=== PATIENT | male | born 1965 | race Caucasian/White ===

== ENCOUNTER 2022-11-30 20:36 | Emergency (ER) | payer BC, MEDICAID ==
[~2022-11-30] VITALS: Ht 182.9 cm; Wt 100.0 kg
[~2022-11-30 20:36] MED LIST: ALBU18HF2 IH; PRED20TA PO
[2022-11-30 20:41] VITALS: BP 166/96
== END 2022-11-30 20:48 ==
LOC: ER 20:37
DX: S00.31XA Abrasion of nose, initial encounter (principal); F10.129 Alcohol abuse with intoxication, unspecified; I10 Essential (primary) hypertension; F12.90 Cannabis use, unspecified, uncomplicated; F15.90 Other stimulant use, unspecified, uncomplicated; Z86.19 Personal history of other infectious and parasitic diseases; Z56.0 Unemployment, unspecified; Z79.899 Other long term (current) drug therapy; Z72.89 Other problems related to lifestyle; W22.8XXA Striking against or struck by other objects, initial encounter; Y93.89 Activity, other specified; Y92.89 Other specified places as the place of occurrence of the external cause; Y99.8 Other external cause status; Y90.9 Presence of alcohol in blood, level not specified
CPT/HCPCS: 99283